=== PATIENT | male | born 1960 | race Caucasian/White ===

== ENCOUNTER 2016-12-16 12:14 | Observation (INO) | payer MEDICAID, OTHER ==
[~2016-12-16] VITALS: Ht 172.7 cm; Wt 60.0 kg
[2016-12-16 12:22] VITALS: BP 121/98; PULSE 86; RESP 18; TEMP 97.6; O2SAT 96
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
[2016-12-16] MEDS ORDERED: VANCOMYCIN INJ 1,000 MG in SODIUM CHLOR 0.9% 250 ML INJ 250 ML IV ONE (13:15)
[2016-12-16] MEDS ORDERED: PIPERACIL-TAZO 3.375 GM PREMIX 50 ML IV ONE (13:15)
--- NOTE | 2016-12-16 13:15 | PD ---
Data Data Last Documented VS Vital Signs Date Time Temp Pulse Resp B/P Pulse Ox O2 Delivery O2 Flow Rate FiO2 12/16/16 12:22 97.6 86 18 121/98 96 Orders Complete Blood Count With Diff (12/16/16 12:57) Comprehensive Metabolic Panel (12/16/16 12:57) Lipase (12/16/16 12:57) Prothrombin Time / Inr (Pt) (12/16/16 12:57) Act Partial Throm Time (Ptt) (12/16/16 12:57) Iv Access Insert/Monitor (12/16/16 12:57) Ecg Monitoring (12/16/16 12:57) Foot, Complete ([id number]) (12/16/16 12:57) Piperacil-Tazo 3.375 Gm Premix (Zosyn 3. (12/16/16 13:15) Vancomycin Inj (Vancomycin Inj) (12/16/16 13:15) Blood Culture (12/16/16 13:09) C-Reactive Protein (Crp) (12/16/16 13:09) Lactic Acid (12/16/16 13:16) Westergren Sedimentation Rate (12/16/16 13:16) Wound Culture And Gram Stain (12/16/16 13:16) MDM Supervised Visit with SAMANTHA: Yes Narrative Course Patient seen and examined by me in addition to Tahir COUGHLIN, patient has cellulitis infection of multiple toes on his right foot. He has a history of taking a sharp needle object through a shoe into his foot suggesting Pseudomonas is infection. There may also be yeasts infection as well. However there is some cellulitis on the dorsum of his foot and recent suspicion for Pseudomonas. Discussed with the patient that the only true way to treat Pseudomonas infection is with IV antibiotics and recommended for admission and he is agreeable. Scripts No Active Prescriptions or Reported Meds Karsten Kirkpatrick MD Dec 16, 2016 13:14
--- NOTE | 2016-12-16 13:28 | RADHPO ---
EXAM DATE/TIME: 12/16/2016 13:13 [facility] COMPARISON: No previous studies available for comparison. INDICATIONS : Pain right foot, digits 2-5 and mid to distal metatarsals, wound on anterior surface of 2nd digit and posterior 3rd digit for 2 weeks MEDICAL HISTORY : Carcinoma, colon. Carcinoma, lung. SURGICAL HISTORY : None. ENCOUNTER: Initial ACUITY: 2 weeks PAIN SCORE: 10/10 LOCATION: Right foot FINDINGS: Three view examination of the right foot demonstrates no soft tissue swelling, dislocation, or fractu re. The tarsal bones appear intact. There is an old fracture deformity of the second metatarsal. T he interphalangeal and metatarsophalangeal joints are intact. The calcaneus is intact. There is mild osteopenia. CONCLUSION: 1. Old fracture deformity involving the second metatarsal. 2. No focal soft tissue abnormality or destructive change. Alek Hess MD on December 16, 2016 at 13:25 Board Certified Radiologist. This report was verified electronically.
[2016-12-16 13:52] LABS: AUTOMATED NEUTROPHIL # 10.4 TH/MM3 (1.8-7.7); BASOPHIL # 0.3 TH/MM3 (0-0.2); BASOPHIL % 2.3 % (0.0-2.0); EOSINOPHIL # 0.1 TH/MM3 (0-0.4); EOSINOPHIL % 0.8 % (0.0-4.0); HEMATOCRIT 45.7 % (39.0-51.0); HEMO FLAGS DIFF FINAL; LYMPH % 13.2 % (9.0-44.0); LYMPHOCYTE # 1.7 TH/MM3 (1.0-4.8); MEAN CELL VOLUME 93.8 FL (80.0-100.0); MEAN CORPUSCULAR HEMOGLOBIN 31.5 PG (27.0-34.0); MEAN CORPUSCULAR HGB CONC 33.5 % (32.0-36.0); NEUT % 78.7 % (16.0-70.0); PLATELET COUNT 340 TH/MM3 (150-450); RED BLOOD COUNT 4.88 MIL/MM3 (4.50-5.90); WHITE BLOOD COUNT 13.2 TH/MM3 (4.0-11.0)
[2016-12-16 14:42] LABS: CHLORIDE 104 MEQ/L (98-107); POTASSIUM 3.9 MEQ/L (3.5-5.1); SODIUM (NA) 140 MEQ/L (136-145)
[2016-12-16 14:46] LABS: ANION GAP 7 MEQ/L (5-15); BICARBONATE 29.1 MEQ/L (21.0-32.0); BLOOD UREA NITROGEN 11 MG/DL (7-18)
[2016-12-16 14:47] LABS: APTT (PATIENT) 30.2 SEC (24.3-30.1); PROTHROMBIN TIME - PATIENT 10.7 SEC (9.8-11.6)
[2016-12-16 14:49] LABS: ALT (GPT) 21 U/L (12-78); AST (GOT) 15 U/L (15-37); GLOMERULAR FILTRATION RATE 97 ML/MIN (>89)
[2016-12-16 14:50] LABS: TOTAL BILIRUBIN ADULT 0.5 MG/DL (0.2-1.0)
[2016-12-16 14:52] LABS: ALKALINE PHOSPHATASE 72 U/L (45-117)
[2016-12-16 16:00] VITALS: BP 136/81; PULSE 69; RESP 16; O2SAT 96
[2016-12-16] MEDS ORDERED: ACETAMINOPHEN 500 MG CPLT PO PRN (16:15)
[2016-12-16] MEDS ORDERED: oxyCODONE/ACETAMINOPHEN 7.5 MG/325 MG TAB PO PRN (16:15)
[2016-12-16] MEDS ORDERED: SODIUM CHLORIDE 0.9% FLUSH 5 ML FLUSH IV PRN (16:15)
[2016-12-16] MEDS ORDERED: NICOTINE 14 MG/24 HR PATCH TD PRN (16:15)
--- NOTE | 2016-12-16 16:21 | HHI.HP ---
[facility] Service [facility] Primary Care Physician Non-Staff Admission Diagnosis CELLULITIS RLE Diagnoses: (1) Cellulitis of toe of right foot Diagnosis: Principal (2) Acute lymphangitis of right lower extremity Diagnosis: Principal (3) Tinea pedis of right foot Diagnosis: Principal Chief Complaint: toe infection Travel History International Travel<30 Days: No Contact w/Intl Traveler <30 Da: No Traveled to Known Affected Are: No History of Present Illness 56-year-old male with history of mesothelioma is admitted for cellulitis of the toes of the right foot. Patient states that 5 weeks ago he stepped on an aluminum staple, but did not seek care for this. He states it was not romero. 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 He states that then it started itching 1.5 weeks later. 4 days ago he noted a wound on the dorsal aspect of the right second toe. He states the foot became hot. He states he had some clear "slippery" drainage from the open area of the toe that felt somewhat different from a normal blister. He states he has had night sweats and vomited last night and cannot walk on the foot. Review of Systems Except as stated in HPI: all other systems reviewed are Neg Past Family Social History Past Medical History Mesothelioma. No treatment received. Patient states in 2013 in [place] he was diagnosed with a cyst on his colon. He states colonoscopy was performed which caused perforation. He was hospitalized for 7 days in the hospital and received antibiotics. Past Surgical History None Reported Medications No Active Prescriptions or Reported Medications Allergies: Coded Allergies: No Known Allergies (Unverified , 12/16/16) Family History Sister: on anti-depressants Brother: heroin addict Patient does not keep in touch with his family Social History Smokes 1 ppd of cigarettes. Denies alcohol use. ED note indicates he uses marijuana. Physical Exam Vital Signs Vital Signs Date Time Temp Pulse Resp B/P Pulse Ox O2 Delivery O2 Flow Rate FiO2 12/16/16 16:00 69 16 136/81 96 12/16/16 12:22 97.6 86 18 121/98 96 Physical Exam GENERAL: This is a well-nourished, well-developed patient, in no apparent distress. SKIN: Erythema noted over the proximal dorsal aspect of the right second toe with a small wound present. Erythema over the dorsal distal aspects of the right third through fifth toes. There is an open area over the proximal plantar aspect of the right second toe which likely had a prior blister. There are small white pustules over the plantar aspect of the toes. Moist skin in between the toes. Yellow discoloration of the nails. Erythema over the dorsal R foot with streaking up the pineda. HEAD: Atraumatic. Normocephalic. EYES: No scleral icterus. No injection or drainage. NECK: Trachea midline. CARDIOVASCULAR: Regular rate and rhythm. RESPIRATORY: Clear to auscultation. Breath sounds equal bilaterally. No wheezes , rales, or rhonchi. MUSCULOSKELETAL: Toes appear swollen. No lower extremity edema bilaterally otherwise. NEUROLOGICAL: Awake and alert. Normal speech. PSYCHIATRIC: Normal mood and affect. Laboratory Laboratory Tests Test 12/16/16 12/16/16 12/16/16 13:35 14:25 14:35 White Blood Count 13.2 Red Blood Count 4.88 Hemoglobin 15.3 Hematocrit 45.7 Mean Corpuscular Volume 93.8 Mean Corpuscular Hemoglobin 31.5 Mean Corpuscular Hemoglobin 33.5 Concent Red Cell Distribution Width 13.0 Platelet Count 340 Mean Platelet Volume 7.2 Neutrophils (%) (Auto) 78.7 Lymphocytes (%) (Auto) 13.2 Monocytes (%) (Auto) 5.0 Eosinophils (%) (Auto) 0.8 Basophils (%) (Auto) 2.3 Neutrophils # (Auto) 10.4 Lymphocytes # (Auto) 1.7 Monocytes # (Auto) 0.7 Eosinophils # (Auto) 0.1 Basophils # (Auto) 0.3 CBC Comment DIFF FINAL Differential Comment Erythrocyte Sedimentation Rate 9 Prothrombin Time 10.7 Prothromb Time International 1.0 Ratio Activated Partial 30.2 Thromboplast Time Sodium Level 140 Potassium Level 3.9 Chloride Level 104 Carbon Dioxide Level 29.1 Anion Gap 7 Blood Urea Nitrogen 11 Creatinine 0.82 Estimat Glomerular Filtration 97 Rate Random Glucose 88 Calcium Level 9.0 Total Bilirubin 0.5 Aspartate Amino Transf 15 (AST/SGOT) Alanine Aminotransferase 21 (ALT/SGPT) Alkaline Phosphatase 72 Total Protein 7.4 Albumin 3.8 Lipase 317 Lactic Acid Level 1.1 Date/Time Procedure Status Source Growth 12/16/16 13:45 Aerobic Blood Culture Received Blood Peripheral Pending 12/16/16 13:45 Anaerobic Blood Culture Received Blood Peripheral Pending 12/16/16 13:15 Gram Stain Received Wound Toe Pending 12/16/16 13:15 Wound Culture Received Wound Toe Pending Result Diagram: 12/16/16 1335 12/16/16 1425 Imaging Last Impressions Foot X-Ray 12/16/16 1257 Signed Impressions: Service Date/Time: December 13:13 - CONCLUSION: 1. Old fracture deformity involving the second metatarsal. 2. No focal soft tissue abnormality or destructive change. Alek Hess MD Assessment and Plan Assessment and Plan 56-year-old male with: Cellulitis of right toes with lymphangitis of right leg: WBC 13.2. Lactic acid normal. CRP mildly elevated at 0.7. ESR normal. Afebrile. Does not meet sepsis criteria. -Zosyn and Vancomycin IV -Wound culture pending -Blood cultures pending -Repeat am CBC Tinea pedis R foot: -Clotrimazole cream DVT prevention: early ambulation, SCD left leg only. Written by Deanna Mclean PA-C acting as scribe for Dr. Ramirez on 12/16/16 at ~ 1600 hours. The documentation accurately reflects the work and decisions performed face-to- face by ia Dr. Ramirez on 12/16/16 at ~1600 hours. Discussed Condition With ED PA, patient Deanna Mclean Dec 16, 2016 16:21
[2016-12-16 17:20] VITALS: BP 119/84; PULSE 81; RESP 20; TEMP 97.6; O2SAT 98
[2016-12-16 20:00] VITALS: BP 127/89; PULSE 70; RESP 16; TEMP 97.8; O2SAT 98
[2016-12-16] MEDS ORDERED: REMOVE OLD NICODERM (NICOTINE) PATCH TD SCH (21:00)
[2016-12-16] MEDS: CLOTRIMAZOLE 1% CREAM 15 GM TOPICAL SCH (21:00)
[2016-12-16] MEDS: SODIUM CHLORIDE 0.9% FLUSH 5 ML FLUSH IV SCH (21:16)
[2016-12-16] MEDS: PIPERACIL-TAZO 4.5 GM PREMIX 100 ML IV SCH (21:16)
[2016-12-17] VITALS: BP 129/80; PULSE 63; RESP 18; TEMP 97.4; O2SAT 96
[2016-12-17] MEDS: PIPERACIL-TAZO 4.5 GM PREMIX 100 ML IV SCH (03:06)
[2016-12-17 05:46] LABS: AUTOMATED NEUTROPHIL # 6.5 TH/MM3 (1.8-7.7); BASOPHIL # 0.1 TH/MM3 (0-0.2); BASOPHIL % 0.8 % (0.0-2.0); EOSINOPHIL # 0.3 TH/MM3 (0-0.4); EOSINOPHIL % 3.1 % (0.0-4.0); HEMATOCRIT 44.4 % (39.0-51.0); HEMO FLAGS DIFF FINAL; LYMPH % 18.3 % (9.0-44.0); LYMPHOCYTE # 1.7 TH/MM3 (1.0-4.8); MEAN CELL VOLUME 94.4 FL (80.0-100.0); MEAN CORPUSCULAR HEMOGLOBIN 31.1 PG (27.0-34.0); MEAN CORPUSCULAR HGB CONC 32.9 % (32.0-36.0); MONO % 8.7 % (0.0-8.0); NEUT % 69.1 % (16.0-70.0); PLATELET COUNT 287 TH/MM3 (150-450); RED CELL DISTRIBUTION WIDTH 13.2 % (11.6-17.2); WHITE BLOOD COUNT 9.4 TH/MM3 (4.0-11.0)
[2016-12-17] MEDS ORDERED: VANCOMYCIN INJ 1,000 MG in SODIUM CHLOR 0.9% 250 ML INJ 250 ML IV SCH (06:00)
[2016-12-17 08:00] VITALS: BP 103/69; PULSE 64; RESP 19; TEMP 98.3; O2SAT 96
[2016-12-17] MEDS: CLOTRIMAZOLE 1% CREAM 15 GM TOPICAL SCH (09:51)
[2016-12-17] MEDS: SODIUM CHLORIDE 0.9% FLUSH 5 ML FLUSH IV SCH (09:54)
[2016-12-17] MEDS ORDERED: CLIN1CAP6 PO (10:02)
[2016-12-17] MEDS ORDERED: CLOT1CRE6 TOPICAL (10:02)
[2016-12-17] MEDS ORDERED: AUGM875T PO (10:02)
--- NOTE | 2016-12-17 10:03 | HHI.DCPOC ---
Discharge Care Plan Diagnosis: (1) Cellulitis of toe of right foot (2) Tinea pedis of right foot (3) Acute lymphangitis of right lower extremity Goals to Promote Your Health * To prevent worsening of your condition and complications * To maintain your health at the optimal level Directions to Meet Your Goals Take your medications as prescribed Follow your dietary instruction Follow activity as directed Keep your appointments as scheduled Take your immunizations and boosters as scheduled If your symptoms worsen call your PCP, if no PCP go to Urgent Care Center or Emergency Room Smoking is Dangerous to Your Health. Avoid second hand smoke Call the 24-hour hour crisis hotline for domestic abuse at Susan Ramirez MD Dec 17, 2016 10:03
--- NOTE | 2016-12-17 10:04 | HHI.DS ---
Discharge Summary Admission Date Dec 16, 2016 at 15:39 Discharge Date: Dec 17, 2016 Admitting Diagnosis CELLULITIS RLE (1) Cellulitis of toe of right foot ICD Code: L03.031 Diagnosis: Principal (2) Acute lymphangitis of right lower extremity ICD Code: L03.125 Diagnosis: Principal (3) Tinea pedis of right foot ICD Code: B35.3 Diagnosis: Principal Procedures none Brief History - From Admission 56-year-old male with history of mesothelioma is admitted for cellulitis of the toes of the right foot. Patient states that 5 weeks ago he stepped on an aluminum staple, but did not seek care for this. He states it was not romero. 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 He states that then it started itching 1.5 weeks later. 4 days ago he noted a wound on the dorsal aspect of the right second toe. He states the foot became hot. He states he had some clear "slippery" drainage from the open area of the toe that felt somewhat different from a normal blister. He states he has had night sweats and vomited last night and cannot walk on the foot. CBC/BMP: 12/17/16 0439 12/16/16 1425 Significant Findings Laboratory Tests Test 12/16/16 12/16/16 12/17/16 13:35 14:25 04:39 White Blood Count 13.2 TH/MM3 (4.0-11.0) Neutrophils (%) (Auto) 78.7 % (16.0-70.0) Basophils (%) (Auto) 2.3 % (0.0-2.0) Neutrophils # (Auto) 10.4 TH/MM3 (1.8-7.7) Basophils # (Auto) 0.3 TH/MM3 (0-0.2) Activated Partial 30.2 SEC Thromboplast Time (24.3-30.1) C-Reactive Protein 0.70 MG/DL (0.00-0.30) Monocytes (%) (Auto) 8.7 % (0.0-8.0) Imaging Last Impressions Foot X-Ray 12/16/16 1257 Signed Impressions: Service Date/Time: December 13:13 - CONCLUSION: 1. Old fracture deformity involving the second metatarsal. 2. No focal soft tissue abnormality or destructive change. Alek Hess MD PE at Discharge GENERAL: This is a well-nourished, well-developed patient, in no apparent distress. CARDIOVASCULAR: Regular rate and rhythm without murmurs, gallops, or rubs. RESPIRATORY: Clear to auscultation. Breath sounds equal bilaterally. No wheezes , rales, or rhonchi. GASTROINTESTINAL: Abdomen soft, non-tender, nondistended. Normal active bowel sounds MUSCULOSKELETAL: Improved right extremity erythema and swelling, Extremities without clubbing, cyanosis, or edema. NEURO: Alert & Oriented x4 to person, place, time, situation. Moves all ext x4 Pt update on day of discharge Patient seen today in follow-up for cellulitis is dramatically improved overnight. Patient has no pain and no fever, leukocytosis improved and discharge plans were discussed with patient as well as nursing staff. Hospital Course Patient was monitored overnight in observation due to cellulitis of the right lower extremity. Patient did well with IV antibiotics and is discharged home Pt Condition on Discharge: Good Discharge Disposition: Discharge Home Discharge Time: > 30 minutes Discharge Instructions DIET: Follow Instructions for: As Tolerated, No Restrictions Activities you can perform: Regular-No Restrictions New Medications: Amoxicillin-Clavulanate (Augmentin) 875-125 mg Tab 875 MG PO BID not for use in CrCl <30 ml/min. Infection #10 Ref 0 TAB Clindamycin (Clindamycin) 300 Mg Cap 600 MG PO Q8H Infection #30 Ref 0 CAP Clotrimazole Topical (Clotrimazole Anti-Fungal Topical) 1% Cream 1 APPLIC TOPICAL Q12HR Infection #1 Susan Huerta MD Dec 17, 2016 10:04
== END 2016-12-17 10:34 | disposition home or self-care (01) ==
LOC: PHED 12:14 → PHEDA 15:39 → INTOOBSV 15:39 → PH3A 17:13
PROVIDERS: ADMIT Hospitalist; ATTEND Hospitalist
DX: L03.031 Cellulitis of right toe (principal); L03.125 Acute lymphangitis of right lower limb; B95.0 Streptococcus, group A, as the cause of diseases classified elsewhere; B95.62 Methicillin resistant Staphylococcus aureus infection as the cause of diseases classified elsewhere; B35.3 Tinea pedis; F17.210 Nicotine dependence, cigarettes, uncomplicated; Z85.89 Personal history of malignant neoplasm of other organs and systems
CPT/HCPCS: 73630; 80053; 83605; 83690; 85025; 85610; 85652; 85730; 86140; 86403; 87040; 87070; 87186; 99284; G0378; J2543; J3370; J7050

== ENCOUNTER 2016-12-22 15:08 | Observation (INO) | payer OTHER ==
[~2016-12-22] VITALS: Ht 172.7 cm; Wt 58.8 kg
[~2016-12-22 15:08] MED LIST: AUGM875T PO; CLIN1CAP6 PO; CLOT1CRE6 TOPICAL
[2016-12-22 15:20] VITALS: BP 132/85; PULSE 85; RESP 16; TEMP 99.4; O2SAT 97
[2016-12-22] MEDS ORDERED: VANCOMYCIN INJ 1,000 MG in SODIUM CHLOR 0.9% 250 ML INJ 250 ML IV STA (16:25)
[2016-12-22] MEDS ORDERED: PIPERACIL-TAZO 4.5 GM PREMIX 100 ML IV STA (16:25)
[2016-12-22] MEDS ORDERED: SODIUM CHLOR 0.9% 1000 ML INJ 1,000 ML IV ONE (16:30)
[2016-12-22] MEDS ORDERED: IBUPROFEN 800 MG TAB PO ONE (16:30)
--- NOTE | 2016-12-22 16:40 | PD ---
HPI Chief Complaint: Skin Problem Time Seen by Provider: 16:39 Travel History International Travel<30 days: No Contact w/Intl Traveler<30days: No Traveled to known affect area: No History of Present Illness HPI Patient comes in complaining of worsening cellulitis of his right foot. Patient states he was seen here for the same thing 7 days ago admitted to the hospital discharge the following day was started on antibiotics. He states he is not taking his antibiotic secondary to them messing up his stomach. Reports last took antibiotics Tuesday morning. Patient states had a fever last night 103. Patient reports pain is getting progressively worse radiates throughout his right foot. Patient denies any known new injuries. PFSH Past Medical History Autoimmune Disease: No Anxiety: No Depression: Yes Cancer: Yes (colon cancer/ lung ) Cardiovascular Problems: No Chemotherapy: No Diabetes: No Endocrine: No Gastrointestinal Disorders: No Genitourinary: No Immune Disorder: No Implanted Vascular Access Dvce: No Musculoskeletal: No Neurologic: No Psychiatric: Yes Reproductive: No Respiratory: No Radiation Therapy: No Thyroid Disease: No Past Surgical History Other Surgery: No Social History Alcohol Use: No Tobacco Use: Yes (1 PPD) Substance Use: No Allergies-Medications (Allergen,Severity, Reaction): Coded Allergies: *MDRO Multi-Drug Resistant Organism (Verified Adverse Reaction, Unknown, ) MRSA (toe wound) - 12/16/16 Reported Meds & Prescriptions Reported Meds & Active Scripts Active Augmentin (Amoxicillin-Clavulanate) 875-125 mg Tab 875 Mg PO BID not for use in CrCl <30 ml/min. Clotrimazole Anti-Fungal Topical (Clotrimazole) 1% Cream 1 Applic TOPICAL Q12HR Clindamycin (Clindamycin HCl) 300 Mg Cap 600 Mg PO Q8H Review of Systems Except as stated in HPI: all other systems reviewed are Neg Physical Exam Narrative GENERAL: Well-developed, well nourished, in no acute distress, and non-ill appearing. SKIN: Warm and dry. Area cellulitis and tinea noted over right toes going into the foot. There is no fluctuation, drainage, or crepitus noted. HEAD: Atraumatic. Normocephalic. EYES: Pupils equal and round. EOMI. No scleral icterus. No injection or drainage. ENT: No nasal bleeding or discharge. Mucous membranes pink and moist. NECK: Trachea midline. Supple. No nuclear rigidity. CARDIOVASCULAR: Dorsal pulses 2+ intact bilaterally. Capillary refill less than 2 seconds. RESPIRATORY: No accessory muscle use. No respiratory distress. MUSCULOSKELETAL: No obvious deformities. No clubbing. No cyanosis. No edema. Full range of motion. NEUROLOGICAL: Awake and alert. No obvious cranial nerve deficits. Motor grossly within normal limits. Normal speech. PSYCHIATRIC: Appropriate mood and affect; insight and judgment normal. Data Data Last Documented VS Vital Signs Date Time Temp Pulse Resp B/P Pulse Ox O2 Delivery O2 Flow Rate FiO2 12/22/16 18:02 72 16 105/77 97 Room Air 12/22/16 15:20 99.4 Orders Complete Blood Count With Diff (12/22/16 16:25) Comprehensive Metabolic Panel (12/22/16 16:25) Lactic Acid Sepsis Protocol (12/22/16 16:25) Blood Culture (12/22/16 16:25) Ecg Monitoring (12/22/16 16:25) Iv Access Insert/Monitor (12/22/16 16:25) Oximetry (12/22/16 16:25) Ibuprofen (Motrin) (12/22/16 16:30) Piperacil-Tazo 4.5 Gm Premix (Zosyn 4.5 (12/22/16 16:25) Vancomycin Inj (Vancomycin Inj) (12/22/16 16:25) C-Reactive Protein (Crp) (12/22/16 16:25) Westergren Sedimentation Rate (12/22/16 16:25) Sodium Chlor 0.9% 1000 Ml Inj (Ns 1000 M (12/22/16 16:30) Foot, Complete (Tlb1ptp) (12/22/16 ) C Diff Toxin Pcr (12/22/16 18:08) Ct Foot W Iv Contrast (12/22/16 ) Iohexol 350 Inj (Omnipaque 350 Inj) (12/22/16 19:19) Admit Order (Ed Use Only) (12/22/16 21:13) Labs Laboratory Tests Test 12/22/16 12/22/16 16:46 16:52 White Blood Count 19.1 TH/MM3 Red Blood Count 4.10 MIL/MM3 Hemoglobin 13.4 GM/DL Hematocrit 38.3 % Mean Corpuscular Volume 93.3 FL Mean Corpuscular Hemoglobin 32.7 PG Mean Corpuscular Hemoglobin 35.0 % Concent Red Cell Distribution Width 13.2 % Platelet Count 322 TH/MM3 Mean Platelet Volume 6.9 FL Neutrophils (%) (Auto) 86.6 % Lymphocytes (%) (Auto) 6.7 % Monocytes (%) (Auto) 4.6 % Eosinophils (%) (Auto) 0.4 % Basophils (%) (Auto) 1.7 % Neutrophils # (Auto) 16.5 TH/MM3 Lymphocytes # (Auto) 1.3 TH/MM3 Monocytes # (Auto) 0.9 TH/MM3 Eosinophils # (Auto) 0.1 TH/MM3 Basophils # (Auto) 0.3 TH/MM3 CBC Comment AUTO DIFF Differential Comment AUTO DIFF CONFIRMED Platelet Estimate NORMAL Platelet Morphology Comment NORMAL Red Cell Morphology Comment NORMAL Erythrocyte Sedimentation Rate 9 mm/hr Sodium Level 140 MEQ/L Potassium Level 3.6 MEQ/L Chloride Level 105 MEQ/L Carbon Dioxide Level 27.0 MEQ/L Anion Gap 8 MEQ/L Blood Urea Nitrogen 7 MG/DL Creatinine 0.74 MG/DL Estimat Glomerular Filtration 109 ML/MIN Rate Random Glucose 94 MG/DL Calcium Level 8.6 MG/DL Total Bilirubin 0.4 MG/DL Aspartate Amino Transf 15 U/L (AST/SGOT) Alanine Aminotransferase 19 U/L (ALT/SGPT) Alkaline Phosphatase 69 U/L C-Reactive Protein 0.95 MG/DL Total Protein 6.9 GM/DL Albumin 3.4 GM/DL Lactic Acid Level 1.0 mmol/L MDM Medical Decision Making Medical Screen Exam Complete: Yes Emergency Medical Condition: Yes Differential Diagnosis Cellulitis, sepsis, tinea, medical noncompliance, other Narrative Course Patient was seen and examined. Initial laboratory radiological studies were obtained and reviewed. Discussed patient with Dr. Kirkpatrick, son evaluated the patient recommends a patient admitted to the hospital for IV antibiotics at least overnight. Discussed all fine and plan of care with patient, who is agreeable for admission. Physician Communication Physician Communication [id number] I discussed patient with Dr. Manley, who wants to have a CT done prior to accepting the patient admission. [address] Almaraz, who is agreeable to admit the patient. Diagnosis Primary Impression: Cellulitis of right foot Additional Impression: Tinea pedis of right foot Admitting Information Admitting Physician Requests: Observation Condition: Stable Joe Salinas Dec 22, 2016 16:40
--- NOTE | 2016-12-22 16:47 | PD ---
Data Data Last Documented VS Vital Signs Date Time Temp Pulse Resp B/P Pulse Ox O2 Delivery O2 Flow Rate FiO2 12/22/16 18:02 72 16 105/77 97 Room Air 12/22/16 15:20 99.4 Orders Complete Blood Count With Diff (12/22/16 16:25) Comprehensive Metabolic Panel (12/22/16 16:25) Lactic Acid Sepsis Protocol (12/22/16 16:25) Blood Culture (12/22/16 16:25) Ecg Monitoring (12/22/16 16:25) Iv Access Insert/Monitor (12/22/16 16:25) Oximetry (12/22/16 16:25) Ibuprofen (Motrin) (12/22/16 16:30) Piperacil-Tazo 4.5 Gm Premix (Zosyn 4.5 (12/22/16 16:25) Vancomycin Inj (Vancomycin Inj) (12/22/16 16:25) C-Reactive Protein (Crp) (12/22/16 16:25) Westergren Sedimentation Rate (12/22/16 16:25) Sodium Chlor 0.9% 1000 Ml Inj (Ns 1000 M (12/22/16 16:30) Foot, Complete ([id number]) (12/22/16 ) C Diff Toxin Pcr (12/22/16 18:08) Ct Foot W Iv Contrast (12/22/16 ) Iohexol 350 Inj (Omnipaque 350 Inj) (12/22/16 19:19) Admit Order (Ed Use Only) (12/22/16 21:13) Labs Laboratory Tests Test 12/22/16 12/22/16 16:46 16:52 White Blood Count 19.1 TH/MM3 Red Blood Count 4.10 MIL/MM3 Hemoglobin 13.4 GM/DL Hematocrit 38.3 % Mean Corpuscular Volume 93.3 FL Mean Corpuscular Hemoglobin 32.7 PG Mean Corpuscular Hemoglobin 35.0 % Concent Red Cell Distribution Width 13.2 % Platelet Count 322 TH/MM3 Mean Platelet Volume 6.9 FL Neutrophils (%) (Auto) 86.6 % Lymphocytes (%) (Auto) 6.7 % Monocytes (%) (Auto) 4.6 % Eosinophils (%) (Auto) 0.4 % Basophils (%) (Auto) 1.7 % Neutrophils # (Auto) 16.5 TH/MM3 Lymphocytes # (Auto) 1.3 TH/MM3 Monocytes # (Auto) 0.9 TH/MM3 Eosinophils # (Auto) 0.1 TH/MM3 Basophils # (Auto) 0.3 TH/MM3 CBC Comment AUTO DIFF Differential Comment AUTO DIFF CONFIRMED Platelet Estimate NORMAL Platelet Morphology Comment NORMAL Red Cell Morphology Comment NORMAL Erythrocyte Sedimentation Rate 9 mm/hr Sodium Level 140 MEQ/L Potassium Level 3.6 MEQ/L Chloride Level 105 MEQ/L Carbon Dioxide Level 27.0 MEQ/L Anion Gap 8 MEQ/L Blood Urea Nitrogen 7 MG/DL Creatinine 0.74 MG/DL Estimat Glomerular Filtration 109 ML/MIN Rate Random Glucose 94 MG/DL Calcium Level 8.6 MG/DL Total Bilirubin 0.4 MG/DL Aspartate Amino Transf 15 U/L (AST/SGOT) Alanine Aminotransferase 19 U/L (ALT/SGPT) Alkaline Phosphatase 69 U/L C-Reactive Protein 0.95 MG/DL Total Protein 6.9 GM/DL Albumin 3.4 GM/DL Lactic Acid Level 1.0 mmol/L MDM Supervised Visit with SAMANTHA: Yes Narrative Course Patient seen and examined by me in addition to Ricardo COUGHLIN. Patient has cellulitis of toes on the right foot. More toes are involved this admission than last. WBC is more elevated than in past. Patient not taking antibiotics 2/2 diarrhea. He will be admitted for IV antibiotics and consideration of ID consult and podiatry consult. Karsten Kirkpatrick MD Dec 22, 2016 16:46
[2016-12-22 16:58] LABS: AUTOMATED NEUTROPHIL # 16.5 TH/MM3 (1.8-7.7); BASOPHIL # 0.3 TH/MM3 (0-0.2); BASOPHIL % 1.7 % (0.0-2.0); EOSINOPHIL # 0.1 TH/MM3 (0-0.4); EOSINOPHIL % 0.4 % (0.0-4.0); HEMATOCRIT 38.3 % (39.0-51.0); LYMPH % 6.7 % (9.0-44.0); LYMPHOCYTE # 1.3 TH/MM3 (1.0-4.8); MEAN CELL VOLUME 93.3 FL (80.0-100.0); MEAN CORPUSCULAR HEMOGLOBIN 32.7 PG (27.0-34.0); MONO % 4.6 % (0.0-8.0); NEUT % 86.6 % (16.0-70.0); PLATELET COUNT 322 TH/MM3 (150-450); RED CELL DISTRIBUTION WIDTH 13.2 % (11.6-17.2); WHITE BLOOD COUNT 19.1 TH/MM3 (4.0-11.0)
[2016-12-22 17:00] VITALS: O2SAT 97
[2016-12-22 17:01] VITALS: BP 135/85; PULSE 74; RESP 16; O2SAT 98
[2016-12-22 17:05] LABS: HEMO FLAGS AUTO DIFF
[2016-12-22 17:07] LABS: CHLORIDE 105 MEQ/L (98-107); POTASSIUM 3.6 MEQ/L (3.5-5.1); SODIUM (NA) 140 MEQ/L (136-145)
[2016-12-22 17:11] LABS: ANION GAP 8 MEQ/L (5-15); BLOOD UREA NITROGEN 7 MG/DL (7-18)
[2016-12-22 17:14] LABS: ALT (GPT) 19 U/L (12-78); AST (GOT) 15 U/L (15-37); GLOMERULAR FILTRATION RATE 109 ML/MIN (>89)
[2016-12-22 17:16] LABS: TOTAL BILIRUBIN ADULT 0.4 MG/DL (0.2-1.0)
[2016-12-22 17:17] LABS: ALKALINE PHOSPHATASE 69 U/L (45-117)
[2016-12-22 17:27] LABS: PLATELET ESTIMATE SMEAR NORMAL (NORMAL); PLATELET MORPHOLOGY NORMAL (NORMAL); SCAN/DIFF AUTO DIFF CONFIRMED
--- NOTE | 2016-12-22 17:59 | RADHPO ---
EXAM DATE/TIME: 12/22/2016 17:37 [facility] COMPARISON: FOOT RIGHT COMPLETE ([id number]), December 16, 2016, 13:13. INDICATIONS : Right foot pain and swelling from unknown injury. MEDICAL HISTORY : None. SURGICAL HISTORY : None. ENCOUNTER: Initial ACUITY: 1 month PAIN SCORE: 8/10 LOCATION: Right foot FINDINGS: Three view examination of the right foot demonstrates no soft tissue swelling, dislocation, or fractu re. The tarsal bones appear intact. There is an old fracture deformity of the second metatarsal aga in noted. The interphalangeal and metatarsophalangeal joints are intact. The calcaneus is intact. B yoselin mineralization is normal. CONCLUSION: 1. Old fracture deformity the second metatarsal again noted. 2. No acute fracture or malalignment. Alek Hess MD on December 22, 2016 at 17:56 Board Certified Radiologist. This report was verified electronically.
[2016-12-22 18:02] VITALS: BP 105/77; PULSE 72; RESP 16; O2SAT 97
[2016-12-22] MEDS ORDERED: IOHEXOL 350 MG/ML 10 ML VIAL (for RAD DIAG) IV ONE (19:19)
--- NOTE | 2016-12-22 19:45 | RADHPO ---
EXAM DATE/TIME: 12/22/2016 19:07 [facility] COMPARISON: No previous studies available for comparison. INDICATIONS : Right foot pain with history of cellulitis. IV CONTRAST: 75 cc Omnipaque 350 (iohexol) IV RADIATION DOSE: 6.09 CTDIvol (mGy) MEDICAL HISTORY : Cellulitis, fracture of right foot. SURGICAL HISTORY : None. ENCOUNTER: Initial ACUITY: 3 weeks PAIN SCALE: 8/10 LOCATION: Right dorsal foot TECHNIQUE: Volumetric scanning of the foot was performed. Using automated exposure control and adjustment of th e mA and/or kV according to patient size, radiation dose was kept as low as reasonably achievable to obtain optimal diagnostic quality images. FINDINGS: BONES: No evidence of acute fracture. There is a healed second metacarpal fracture deformity. No areas of b yoselin destruction are seen. Alignment is within normal limits. JOINTS: No evidence of joint narrowing or effusion. SOFT TISSUES: Muscles, tendons, and neurovascular structures are grossly unremarkable. No evidence of mass, organiz ed fluid collection, or foreign body. CONCLUSION: No acute disease. Tahir Peres MD on December 22, 2016 at 19:41 Board Certified Radiologist. This report was verified electronically.
[2016-12-22 21:35] VITALS: BP 116/79; PULSE 63; RESP 22; TEMP 97.6; O2SAT 96
[2016-12-23] VITALS: BP 123/79; PULSE 53; RESP 20; TEMP 96.4; O2SAT 95
--- NOTE | 2016-12-23 07:55 | HHI.HP ---
[facility] Primary [facility]ician No Primary Care Physician Admission Diagnosis right foot cellulitis, tinea Diagnoses: (1) Tinea pedis of right foot Diagnosis: Principal (2) Onychomycosis of left great toe (3) Noncompliance (4) Leukocytosis (5) Diarrhea Chief Complaint: Worsening cellulitis Travel History International Travel<30 Days: No Contact w/Intl Traveler <30 Da: No Traveled to Known Affected Are: No History of Present Illness 56-year-old male with known history of mesothelioma who presented to hospital because of cellulitis of the right foot. Patient was recently hospitalized on 12/16/16 and responded well to IV antibiotics to include vancomycin, Zosyn. Patient was discharged home on 12/17/16 with oral antibiotics to include Augmentin, clindamycin and clotrimazole cream. Patient states that he did not even fill the prescription for the antibiotics. He used to cream until it was gone. Patient argumentative about his care and management. He states that he had a difficult time with the physicians in the ER as well about his clinical condition. Patient states that he should have remained in the hospital until his feet were completely healed prior to being discharged last time. He states that he is not going to leave the hospital this time until his feet are completely healed. He indicates that when he got home he developed watery diarrhea in that was not conducive to his job. The patient did not take any antibiotics because he had the diarrhea. Patient indicates that since he had the diarrhea he has not ate anything in 4 days. However, laboratory studies do not indicate any malnutrition, dehydration. Patient presented back to the hospital for management and demands to stay in the hospital until his feet are completely clear. He states that he has an infection in the bone that needs to be addressed. CT scan and x-rays that were performed do not indicate any osteomyelitis. The feet actually appear to be healing nicely. It was difficult to have conversation with the patient because of his agitation, argumentative state, demanding treatment. 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 He read that antibiotics can cause diarrhea and so he did not fill the antibiotics. He states that he had a fever and chills yesterday. However he has not had fevers here. He states he has not had a loose stool since being in the hospital. He states he has not eaten anything for the past 3 days but was able to eat a bagel this morning. Review of Systems Constitutional: COMPLAINS OF: Fever (subjective) Musculoskeletal: COMPLAINS OF: Joint pain Except as stated in HPI: all other systems reviewed are Neg Past Family Social History Past Medical History Mesothelioma. History of bowel perforation secondary to colonoscopy Past Surgical History Colonoscopy Reported Medications Reported Meds & Active Scripts Active Augmentin (Amoxicillin-Clavulanate) 875-125 mg Tab 875 Mg PO BID not for use in CrCl <30 ml/min. Clotrimazole Anti-Fungal Topical (Clotrimazole) 1% Cream 1 Applic TOPICAL Q12HR Clindamycin (Clindamycin HCl) 300 Mg Cap 600 Mg PO Q8H Allergies: Coded Allergies: *MDRO Multi-Drug Resistant Organism (Verified Adverse Reaction, Unknown, ) MRSA (toe wound) - 12/16/16 Family History Reviewed and remarkable for sister with depression and brother with heroin addiction Social History Patient smokes 1 pack a cigarettes a day, denies any alcohol use, patient denies any illicit drug use Physical Exam Vital Signs Vital Signs Date Time Temp Pulse Resp B/P Pulse Ox O2 Delivery O2 Flow Rate FiO2 12/23/16 00:00 96.4 53 20 123/79 95 12/22/16 21:35 97.6 63 22 116/79 96 12/22/16 18:02 72 16 105/77 97 Room Air 12/22/16 17:01 74 16 135/85 98 Room Air 12/22/16 17:00 97 12/22/16 15:20 99.4 85 16 132/85 97 Physical Exam GENERAL: Well-developed, well-nourished, in no acute distress. alert and orientated HEENT: Head is normocephalic without any lesions or masses noted. Facial features are symmetric. Eyes: Extraocular muscles are intact. Conjunctivae were clear. Oropharyngeal: Pharynx without any erythema edema. Tongue is midline without deviation. Buccal mucosa is moist without any masses or lesions NECK: Supple without any masses. Trachea midline no deviation. No JVD, no bruits are appreciated CARDIAC: Regular rhythm, regular rate. S1/S2 are heard. No murmurs gallops or rubs. LUNGS: Clear to auscultation bilaterally. No wheeze, rhonchi or rales. No use of accessory muscles on inspiration or expiration. ABDOMEN: Soft, nontender. Nondistended. Bowel sounds heard in all 4 quadrants. No organomegaly or masses. Negative rebound, negative guarding EXTREMITIES: No edema, pulses are equal bilaterally. No cyanosis or clubbing NEUROLOGY: Mood and affect appear appropriate. Cranial nerves II through XII grossly intact. Muscle strength 5/5 in upper and lower extremities bilaterally. Deep tendon reflexes are 2+ in upper and lower extremities bilaterally. RIGHT FOOT: Right great toe does have mild erythema noted on the nail bed, with maceration of the skin in between the first and second toes. Patient does have dry and scaly skin underneath all his toes, healing tinea. Patient does have onychomycosis of the right foot fifth digit. LEFT FOOT: Minimal tinea noted underside of the toes. excoriation of the medial left great toe Laboratory Laboratory Tests Test 12/22/16 12/22/16 16:46 16:52 White Blood Count 19.1 Red Blood Count 4.10 Hemoglobin 13.4 Hematocrit 38.3 Mean Corpuscular Volume 93.3 Mean Corpuscular Hemoglobin 32.7 Mean Corpuscular Hemoglobin 35.0 Concent Red Cell Distribution Width 13.2 Platelet Count 322 Mean Platelet Volume 6.9 Neutrophils (%) (Auto) 86.6 Lymphocytes (%) (Auto) 6.7 Monocytes (%) (Auto) 4.6 Eosinophils (%) (Auto) 0.4 Basophils (%) (Auto) 1.7 Neutrophils # (Auto) 16.5 Lymphocytes # (Auto) 1.3 Monocytes # (Auto) 0.9 Eosinophils # (Auto) 0.1 Basophils # (Auto) 0.3 CBC Comment AUTO DIFF Differential Comment AUTO DIFF CONFIRMED Platelet Estimate NORMAL Platelet Morphology Comment NORMAL Red Cell Morphology Comment NORMAL Erythrocyte Sedimentation Rate 9 Sodium Level 140 Potassium Level 3.6 Chloride Level 105 Carbon Dioxide Level 27.0 Anion Gap 8 Blood Urea Nitrogen 7 Creatinine 0.74 Estimat Glomerular Filtration 109 Rate Random Glucose 94 Calcium Level 8.6 Total Bilirubin 0.4 Aspartate Amino Transf 15 (AST/SGOT) Alanine Aminotransferase 19 (ALT/SGPT) Alkaline Phosphatase 69 C-Reactive Protein 0.95 Total Protein 6.9 Albumin 3.4 Lactic Acid Level 1.0 Date/Time Procedure Status Source Growth 12/22/16 16:52 Aerobic Blood Culture Received Blood Peripheral Pending 12/22/16 16:52 Anaerobic Blood Culture Received Blood Peripheral Pending Result Diagram: 12/22/16 1646 12/22/16 1646 Imaging Last Impressions Lower Extremity CT 12/22/16 0000 Signed Impressions: Service Date/Time: Thursday, December 22, 2016 19:07 - CONCLUSION: No acute disease. Tahir Peres MD Foot X-Ray 12/22/16 0000 Signed Impressions: Service Date/Time: Thursday, December 22, 2016 17:37 - CONCLUSION: 1. Old fracture deformity the second metatarsal again noted. 2. No acute fracture or malalignment. Alek Hess MD Assessment and Plan Assessment and Plan Tinea pedis and nitroglycerin mycosis - I really do not see any evidence of cellulitis. Will DC vancomycin IV. Start him on Diflucan and continue topical clotrimazole. Patient was educated on proper foot care and to keep the feet dry. Diarrhea. No further episodes since admission. He did have a leukocytosis of 19,000 which has resolved today and we are awaiting a C. difficile PCR. Need to rule out C. difficile given that he was treated with antibiotics. Noncompliance with previous recommended therapy. I spent about 20 minutes in time time educating the patient on the above. DVT prevention Subcutaneous Lovenox Written by Aguila Fabian PA-C, acting as scribe for Dr. Manley on 12/23/16 at 11:00 a.m. The documentation accurately reflects the work and decisions performed face-to- face by Dr. Manley on 12/23/16 at 11:00. Aguila Fabian Dec 23, 2016 07:54 Judith Manley MD Dec 23, 2016 14:[address] Manley on 12/23/16 at [Time]. Aguila Fabian Dec 23, 2016 07:54 Judith Manley MD Dec 23, 2016 14:01
[2016-12-23 08:00] VITALS: BP 123/95; PULSE 68; RESP 18; TEMP 97; O2SAT 97
[2016-12-23] MEDS ORDERED: Vancomycin Consult Pharmacy 1 EA OTHER SCH (08:00)
[2016-12-23] MEDS ORDERED: VANCOMYCIN INJ 1,000 MG in SODIUM CHLOR 0.9% 250 ML INJ 250 ML IV ONE (08:00)
[2016-12-23] MEDS: ENOXAPARIN SODIUM 40 MG/0.4 ML SYRINGE SQ SCH (08:43)
[2016-12-23 08:48] LABS: AUTOMATED NEUTROPHIL # 7.6 TH/MM3 (1.8-7.7); BASOPHIL # 0.1 TH/MM3 (0-0.2); BASOPHIL % 0.5 % (0.0-2.0); EOSINOPHIL # 0.2 TH/MM3 (0-0.4); EOSINOPHIL % 1.7 % (0.0-4.0); HEMATOCRIT 38.9 % (39.0-51.0); LYMPH % 16.6 % (9.0-44.0); LYMPHOCYTE # 1.7 TH/MM3 (1.0-4.8); MEAN CELL VOLUME 95.2 FL (80.0-100.0); MEAN CORPUSCULAR HEMOGLOBIN 31.8 PG (27.0-34.0); MEAN CORPUSCULAR HGB CONC 33.4 % (32.0-36.0); NEUT % 75.2 % (16.0-70.0); PLATELET COUNT 289 TH/MM3 (150-450); RED BLOOD COUNT 4.09 MIL/MM3 (4.50-5.90); RED CELL DISTRIBUTION WIDTH 13.8 % (11.6-17.2); WHITE BLOOD COUNT 10.2 TH/MM3 (4.0-11.0)
[2016-12-23 09:10] LABS: HEMO FLAGS DIFF FINAL
[2016-12-23] MEDS: MUPIROCIN 2% OINT 22 GM TUBE TOPICAL SCH ×2 (10:13→21:00)
[2016-12-23] MEDS: CLOTRIMAZOLE 1% CREAM 15 GM TOPICAL SCH ×2 (10:13→21:00)
[2016-12-23] MEDS ORDERED: PILL SPLITTER OTHER PRN (11:30)
[2016-12-23] MEDS: FLUCONAZOLE 100 MG TAB PO SCH (11:56)
[2016-12-23 12:00] VITALS: BP 122/80; PULSE 70; RESP 18; TEMP 97; O2SAT 97
[2016-12-23] MEDS: metroNIDAZOLE 500 MG TAB PO SCH ×2 (13:09→18:01)
[2016-12-23 16:00] VITALS: BP 128/82; PULSE 72; RESP 16; TEMP 97.2; O2SAT 98
[2016-12-23 20:00] VITALS: BP 138/89; PULSE 53; RESP 20; TEMP 97.3; O2SAT 100
[2016-12-23] MEDS ORDERED: VANCOMYCIN 1,000 MG/NS 250 ML IV SCH ×2 (20:00)
[2016-12-24] VITALS: BP 119/72; PULSE 56; RESP 20; TEMP 96.4; O2SAT 99
[2016-12-24 06:41] LABS: AUTOMATED NEUTROPHIL # 4.4 TH/MM3 (1.8-7.7); BASOPHIL % 0.5 % (0.0-2.0); EOSINOPHIL # 0.2 TH/MM3 (0-0.4); EOSINOPHIL % 2.9 % (0.0-4.0); HEMATOCRIT 38.7 % (39.0-51.0); HEMO FLAGS DIFF FINAL; LYMPH % 25.1 % (9.0-44.0); LYMPHOCYTE # 1.7 TH/MM3 (1.0-4.8); MEAN CELL VOLUME 94.5 FL (80.0-100.0); MEAN CORPUSCULAR HEMOGLOBIN 32.3 PG (27.0-34.0); MEAN CORPUSCULAR HGB CONC 34.2 % (32.0-36.0); NEUT % 62.5 % (16.0-70.0); PLATELET COUNT 305 TH/MM3 (150-450); RED CELL DISTRIBUTION WIDTH 13.4 % (11.6-17.2); WHITE BLOOD COUNT 6.9 TH/MM3 (4.0-11.0)
[2016-12-24 08:00] VITALS: BP 133/83; PULSE 61; RESP 20; TEMP 97.9; O2SAT 98
[2016-12-24] MEDS: metroNIDAZOLE 500 MG TAB PO SCH (08:18)
[2016-12-24] MEDS: FLUCONAZOLE 100 MG TAB PO SCH (08:19)
[2016-12-24] MEDS: ENOXAPARIN SODIUM 40 MG/0.4 ML SYRINGE SQ SCH (08:19)
[2016-12-24] MEDS ORDERED: MUPI2OIN EXT (09:20)
[2016-12-24] MEDS ORDERED: CLOT1CRE6 TOPICAL (09:20)
[2016-12-24] MEDS ORDERED: DIFL100T PO (09:20)
--- NOTE | 2016-12-24 09:27 | HHI.DCPOC ---
Discharge Care Plan Diagnosis: (1) Tinea pedis (2) Onychomycosis (3) Paronychia of great toe, right Goals to Promote Your Health * To prevent worsening of your condition and complications * To maintain your health at the optimal level Directions to Meet Your Goals Take your medications as prescribed Follow your dietary instruction Follow activity as directed Keep your appointments as scheduled Take your immunizations and boosters as scheduled If your symptoms worsen call your PCP, if no PCP go to Urgent Care Center or Emergency Room Smoking is Dangerous to Your Health. Avoid second hand smoke Call the 24-hour hour crisis hotline for domestic abuse at Judith Manley MD Dec 24, 2016 09:27
--- NOTE | 2016-12-24 09:43 | HHI.PR ---
Subjective Remarks The patient has had no further diarrhea. In fact he has not had a bowel movement. No fevers. Objective Vitals Vital Signs Date Time Temp Pulse Resp B/P Pulse Ox O2 Delivery O2 Flow Rate FiO2 12/24/16 08:00 97.9 61 20 133/83 98 12/24/16 00:00 96.4 56 20 119/72 99 12/23/16 20:00 97.3 53 20 138/89 100 12/23/16 16:00 97.2 72 16 128/82 98 12/23/16 12:00 97.0 70 18 122/80 97 I/O 12/23/16 12/23/16 12/23/16 12/24/16 12/24/16 12/24/16 07:00 15:00 23:00 07:00 15:00 23:00 Intake Total 60 ml 200 ml 840 ml 60 ml Balance 60 ml 200 ml 840 ml 60 ml Intake Oral 60 ml 200 ml 840 ml 60 ml # Voids 1 3 1 # Bowel Movements 0 0 0 Result Diagram: 12/24/16 0550 12/22/16 1646 Objective Remarks GENERAL: Well-nourished, well-developed lean male patient in no apparent distress. SKIN: Warm and dry. HEAD: Normocephalic. EYES: No scleral icterus. No injection or drainage. NECK: Supple, trachea midline. No JVD or lymphadenopathy. CARDIOVASCULAR: Regular rate and rhythm without murmurs, gallops, or rubs. RESPIRATORY: Breath sounds equal bilaterally. No accessory muscle use. GASTROINTESTINAL: Abdomen soft, non-tender, nondistended. EXTREMITIES: No cyanosis, or edema. RIGHT FOOT: Right great toe does have mild erythema noted on the nail bed, consistent with acute paronychia without abscess. he also has with maceration of the skin in between the first and second toes. Patient does have dry and scaly skin underneath all his toes, healing tinea. Patient does have onychomycosis of the right foot fifth digit. LEFT FOOT: Minimal tinea noted underside of the toes. maceration of the medial left great toe NEUROLOGICAL: Awake, alert, and oriented x 3. Non-focal. A/P Problem List: (1) Tinea pedis of right foot ICD Code: B35.3 Status: Acute (2) Noncompliance ICD Code: Z91.19 Status: Acute (3) Leukocytosis ICD Code: D72.829 Status: Acute (4) Diarrhea ICD Code: R19.7 Status: Acute Assessment and Plan Tinea pedis of both feet, and acute paronychia without abscess of the right great toenail bed -no evidence of cellulitis. 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 Cont Diflucan PO 3 more days, continue topical clotrimazole to all toes for 14 days, cont mupirocin to right great toe and in between both great toes and second toes (over area of maceration to prevent secondary bacterial infection). Patient was educated on proper foot care and to keep the feet dry. Diarrhea. No further episodes since admission. He did have a leukocytosis of 19,000 which has resolved. No stool sample available for C. difficile. In the absence of diarrhea C. difficile has been ruled out. Noncompliance with previous recommended therapy. The patient was educated in detail about the above conditions. He does have health insurance but has not obtained a primary care physician yet. I did encourage him to call his insurance company for a list of primary care physicians to accept his insurance and to get set up with a primary Fighter for follow-up. Discharge home today. Judith Manley MD Dec 24, 2016 09:43
[2016-12-24] MEDS: CLOTRIMAZOLE 1% CREAM 15 GM TOPICAL SCH (10:22)
[2016-12-24] MEDS: MUPIROCIN 2% OINT 22 GM TUBE TOPICAL SCH (10:22)
[2016-12-24] MEDS ORDERED: PHARMACY ORDERED LAB XX ONE (19:45)
== END 2016-12-24 10:57 | disposition home or self-care (01) ==
LOC: PHEFT 15:08 → PHEDA 21:14 → PH3B 23:04
PROVIDERS: ADMIT Family Medicine; ATTEND Family Medicine
DX: L03.031 Cellulitis of right toe (principal); B35.3 Tinea pedis; B35.1 Tinea unguium; D72.829 Elevated white blood cell count, unspecified; F17.210 Nicotine dependence, cigarettes, uncomplicated; Z91.14 Patient's other noncompliance with medication regimen; Z85.038 Personal history of other malignant neoplasm of large intestine
CPT/HCPCS: 73630; 73701; 80053; 83605; 85025; 85652; 86140; 87040; 96365; 96367; 99285; G0378; J1650; J2543; J3370; J7030; J7050; Q9967

== ENCOUNTER 2017-05-28 20:36 | Emergency (ER) | payer SELFPAY ==
[~2017-05-28] VITALS: Ht 172.7 cm; Wt 57.5 kg
[~2017-05-28 20:36] MED LIST changes: -AUGM875T PO; -CLIN1CAP6 PO; +DIFL100T PO; +MUPI2OIN EXT
[2017-05-28 20:57] VITALS: BP 123/79; PULSE 67; RESP 18; TEMP 98.7; O2SAT 99
[2017-05-28 21:16] VITALS: BP 123/79; PULSE 67; RESP 18; TEMP 98.7; O2SAT 99
[2017-05-28 21:22] VITALS: BP 123/79; PULSE 67; RESP 18; TEMP 98.7; O2SAT 99
[2017-05-28] MEDS ORDERED: KETOROLAC TROMETHAMINE 60 MG/2 ML (IM) VIAL IM ONE (21:30)
[2017-05-28] MEDS ORDERED: SODIUM CHLORIDE 0.9% FLUSH 10 ML FLUSH IVF PRN (21:30)
--- NOTE | 2017-05-28 21:31 | PD ---
HPI Chief Complaint: Complaint Time Seen by Provider: 21:21 Travel History International Travel<30 days: No Contact w/Intl Traveler<30days: No Traveled to known affect area: No History of Present Illness HPI 56-year-old male here for evaluation of left testicular pain. Patient reports that the symptoms started 2 days ago and have been progressively worsening. Pain is moderate to severe, constant, worse with movement and palpation. He denies trauma. He did notice a little bit of swelling today. No urinary symptoms. He states he is not sexually active, and has not been for 4 years. No fevers or chills. No penile discharge. PFSH Past Medical History Autoimmune Disease: No Anxiety: No Depression: Yes Cancer: Yes (colon cancer/ lung (MESOTHELIOMA) ) Cardiovascular Problems: No Chemotherapy: No Diabetes: No Endocrine: No Gastrointestinal Disorders: No Genitourinary: No Immune Disorder: No Implanted Vascular Access Dvce: No Musculoskeletal: No Neurologic: No Psychiatric: Yes Reproductive: No Respiratory: Yes (HS MESOTHELIOMA) Radiation Therapy: No Thyroid Disease: No Tetanus Vaccination: < 5 Years Influenza Vaccination: No Past Surgical History Other Surgery: No Social History Alcohol Use: No Tobacco Use: Yes (1 PPD) Substance Use: Yes (OCCASIONAL MARIJUANA USE) Allergies-Medications (Allergen,Severity, Reaction): Coded Allergies: *MDRO Multi-Drug Resistant Organism (Verified Adverse Reaction, Unknown, ) MRSA (toe wound) - 12/16/16 Reported Meds & Prescriptions Reported Meds & Active Scripts Active Diflucan (Fluconazole) 100 Mg Tab 150 Mg PO DAILY Mupirocin Topical (Mupirocin) 2 % Oint 1 Applic EXT Q12HR apply to nail bed of great toes and in between great toes and 2nd toes. Clotrimazole Anti-Fungal Topical (Clotrimazole) 1% Cream 1 Applic TOPICAL Q12HR Use for 14 days. Keep feet dry. Review of Systems Except as stated in HPI: all other systems reviewed are Neg Physical Exam Narrative GENERAL: Well-developed, well-nourished, comfortable, no apparent distress. SKIN: Focused skin assessment warm/dry. No rash. CARDIOVASCULAR: Regular rate and rhythm. RESPIRATORY: No accessory muscle use. GASTROINTESTINAL: Abdomen soft, non-tender, nondistended. : Normal-appearing external genitalia. Normal-appearing scrotum. No hepatitis, erythema, warmth, or necrosis. There is moderate left testicular tenderness without swelling, without masses. No hernias NEUROLOGICAL: Awake and alert. No obvious cranial nerve deficits. Motor grossly within normal limits. Normal speech. PSYCHIATRIC: Appropriate mood and affect; insight and judgment normal. Data Data Last Documented VS Vital Signs Date Time Temp Pulse Resp B/P Pulse Ox O2 Delivery O2 Flow Rate FiO2 05/28/17 21:22 98.7 67 18 123/79 99 Room Air Orders Urinalysis - C+S If Indicated (05/28/17 21:28) Gc And Chlamydia Pcr (05/28/17 21:28) Us Testicles W Doppler (05/28/17 21:28) Sodium Chloride 0.9% Flush (Ns Flush) (05/28/17 21:30) Ketorolac Inj (Toradol Inj) (05/28/17 21:30) Labs Laboratory Tests Test 05/28/17 21:50 Urine Color YELLOW Urine Turbidity CLEAR Urine pH 6.0 Urine Specific [place] 1.031 Urine Protein NEG mg/dL Urine Glucose (UA) NEG mg/dL Urine Ketones 40 mg/dL Urine Occult Blood TRACE Urine Nitrite NEG Urine Bilirubin NEG Urine Leukocyte Esterase NEG Urine RBC 0-3 /hpf Urine WBC 0-2 /hpf Urine Squamous Epithelial 0-5 /hpf Cells Urine Bacteria NONE /hpf Microscopic Urinalysis Comment CULT NOT INDICATED MDM Medical Decision Making Medical Screen Exam Complete: Yes Emergency Medical Condition: Yes Differential Diagnosis Orchitis, torsion, epididymitis, hydrocele, varicocele, Fourniere's Gangrene not likely Narrative Course UA shows 40 ketones, trace occult blood. Testicular ultrasound: Normal testicles with normal blood flow bilaterally. Patient does have tenderness to his left testicle, however there are no significant physical exam findings other than tenderness. There is no swelling or masses. No signs of Ralph's gangrene. On reassessment the patient is sleeping comfortably. He still tells me he is in a lot of pain, however he is refusing pain medication. He agreed to IM Toradol, but does not want a prescription for any pain meds. Patient is newly homeless. He states he will be returning to [place] where his parents are in our system as soon as he can. I stressed the importance of following up with the microscopic hematuria especially given the fact that his father has bladder cancer. He is stable for discharge home with outpatient follow-up. I'll given the name of our urologist associate professor of automation with whom to follow-up with the next week. Patient informed on when to return to the emergency department. He verbalizes understanding and agreement with plan. Diagnosis Primary Impression: Testicular pain, left Additional Impression: Microscopic hematuria Referrals: Mannie Novak DO 3 days [facility] 3 days Additional Instructions: Follow-up with a primary care physician this week. Follow-up with urologist Dr. Novak or a urologist of your choice this week. Return to the emergency department for worsening symptoms or any other concerns. Disposition: 01 DISCHARGE HOME Condition: Stable Ankur Saenz MD May 28, 2017 21:31
[2017-05-28 22:01] LABS: BLOOD, URINE TRACE (NEG); GLUCOSE,URINE NEG (NEG); KETONE, URINE 40 mg/dL (NEG); NITRITE,URINE NEG (NEG)
[2017-05-28 22:07] LABS: URINE COLOR YELLOW (YELLW/STRAW)
[2017-05-28 22:08] LABS: COMMENT (UR) CULT NOT INDICATED; COMMENT2 (UR) MUCOUS PRESENT; CULTURE IF INDICATED CULT NOT INDICATED; RBC, URINE 0-3 /hpf (0-3); SQUAMOUS EPITHELIAL CELL URINE 0-5 /hpf (0-5); WBC, URINE 0-2 /hpf (0-5)
--- NOTE | 2017-05-28 23:10 | RADRPT ---
EXAM DATE/TIME: 05/28/2017 22:17 [facility] COMPARISON: No previous studies available for comparison. INDICATIONS : Testicular pain. MEDICAL HISTORY : Mesothelioma. Depression. Colon caner. MRSA. SURGICAL HISTORY : Right arm and pink muscle/ tendon repair. ENCOUNTER: Initial ACUITY: 1 week PAIN SCORE: 8/10 LOCATION: Bilateral testicle. MEASUREMENTS: RIGHT TESTICLE: 3.8 x 2.7 x 2.0 cm LEFT TESTICLE: 3.4 x 2.7 x 2.0cm FINDINGS: RIGHT TESTICLE: Homogeneous echotexture without intra or extratesticular mass. Blood flow is symmetric and within no rmal limits. Minimal hydrocele. Epididymis is within normal limits. LEFT TESTICLE: Homogeneous echotexture without intra or extratesticular mass. Blood flow is symmetric and within no rmal limits. Minimal hydrocele. A small epididymal cyst SCROTUM: Within normal limits. CONCLUSION: Normal testicles Tahir Turner MD on May 28, 2017 at 23:07 Board Certified Radiologist. This report was verified electronically.
[2017-05-28 23:46] VITALS: BP 128/78; PULSE 64; RESP 18; O2SAT 98
[2017-05-29 02:55] LABS: CHLAMYDIA PCR NOT DETECTED (NOT DETECT); NEISSERIA PCR NOT DETECTED (NOT DETECT)
== END 2017-05-28 23:52 | disposition home or self-care (01) ==
LOC: PHED 20:36
DX: N50.812 Left testicular pain (principal); R31.29 Other microscopic hematuria; F17.210 Nicotine dependence, cigarettes, uncomplicated
CPT/HCPCS: 76870; 81001; 87491; 87591; 93975; 96372; 99285; J1885